=== PATIENT | male | born 1970 | race Two or more races ===

== ENCOUNTER 2017-09-01 05:52 | Emergency (ER) | payer SELFPAY ==
[2017-09-01 06:06] VITALS: TEMP 98.4; O2SAT 96
--- NOTE | 2017-09-01 06:31 | ED PDOC ---
HPI: Psych/Substance Abuse Time Seen by Provider: 09/01/17 06:05 Chief Complaint (Nursing): Psychiatric Evaluation Chief Complaint (Provider): Psychiatric Evaluation History Per: Patient, EMS History/Exam Limitations: no limitations Onset/Duration Of Symptoms: Days Current Symptoms Are (Timing): Still Present Additional Complaint(s): Brice Frazier is a 46 year old male, with a past medical history of schizophrenia, who was brought to the ED by EMS for psychiatric evaluation. As per EMS, patient was found ambulating around the streets hallucinating and acting bizarre. Patient denies suicidal ideations. Patient has no medical complaints at this time. PMD: SOHAN Past Medical History Reviewed: Historical Data, Nursing Documentation, Vital Signs Vital Signs: Last Vital Signs Temp 98.4 F 09/01/17 06:03 Pulse 74 09/01/17 06:03 Resp 16 09/01/17 06:03 BP 191/115 H 09/01/17 06:03 Pulse Ox 96 09/01/17 06:03 - Medical History PMH: Schizophrenia - Family History Family History: States: Unknown Family Hx - Home Medications Home Medications: Ambulatory Orders Medication Instructions Recorded Quetiapine Fumarate [Seroquel] 200 mg PO QID 09/01/17 - Allergies Allergies/Adverse Reactions: Allergies Allergy/AdvReac Type Severity Reaction Status Date / Time No Known Allergies Allergy Verified 09/01/17 06:03 Review of Systems ROS Statement: Except As Marked, All Systems Reviewed And Found Negative Psych: Negative for: Suicidal ideation Physical Exam - Reviewed Nursing Documentation Reviewed: Yes Vital Signs Reviewed: Yes - Physical Exam Appears: Positive for: Non-toxic, No Acute Distress Head Exam: Positive for: ATRAUMATIC Skin: Positive for: Normal Color, Warm. Negative for: Rash Eye Exam: Positive for: Normal appearance Cardiovascular/Chest: Positive for: Regular Rate, Rhythm. Negative for: Murmur Respiratory: Positive for: Normal Breath Sounds. Negative for: Respiratory Distress Gastrointestinal/Abdominal: Positive for: Normal Exam, Bowel Sounds, Soft. Negative for: Tenderness Neurologic/Psych: Positive for: Alert, Oriented - Laboratory Results Result Diagrams: 09/01/17 06:39 09/01/17 06:39 - ECG O2 Sat by Pulse Oximetry: 96 (RA) Pulse Ox Interpretation: Normal Medical Decision Making Medical Decision Making: Time: 06:16 Plan: --Acetaminophen --Alcohol serum --BMP --Urine drug screen --Salicylate --CBC w/ differential --1:1 Observation --Urinalysis --Reevaluation --Crisis is aware of patient. Awaiting medical clearance for evaluation. Time: 07:00 --Patient is signed out to Dr. Hernandez pending psychiatric evaluation. Scribe Attestation: Documented by Chano Albarado acting as a scribe for Ortiz Cohn MD. Scribe Attestation: All medical record entries made by the Scribe were at my direction and personally dictated by me. I have reviewed the chart and agree that the record accurately reflects my personal performance of the history, physical exam, medical decision making, and the department course for this patient. I have also personally directed, reviewed, and agree with the discharge instructions and disposition. Disposition - Clinical Impression Clinical Impression: Schizophrenia - Patient ED Disposition Is Patient to be Admitted: Transfer of Care - Disposition Referrals: [facility] [Outside] Disposition: Transfer of Care Disposition Time: 07:00 Condition: FAIR Instructions: Schizophrenia (ED) Forms: [employer] ([place]) Patient Signed Over To: Daniel Hernandez Handoff Comments: pending psych
[2017-09-01 06:50] LABS: EOS # 0.3 K/uL (0.0-0.7)
[2017-09-01 06:54] LABS: BASO % 0.2 % (0.0-2.0); EOS % 2.2 % (0.0-4.0); HEMOGLOBIN 12.1 g/dL (12.0-18.0); LYMPH % 26.2 % (20.0-40.0); MEAN CELL VOLUME 82.2 fl (80.0-94.0); MEAN CORPUSCULAR HEMOGLOBIN 27.6 pg (27.0-31.0); MEAN CORPUSCULAR HGB CONC 33.6 g/dL (33.0-37.0); MEAN PLATELET VOLUME 7.7 fl (7.2-11.7); MONO # 0.6 K/uL (0.0-0.8); MONO % 5.1 % (0.0-10.0); NEUT # 7.6 K/uL (1.8-7.0); NEUT % 66.3 % (50.0-75.0); NRBC % 0.1 % (0.0-0.0); RBC 4.36 Mil/uL (4.40-5.90); RED CELL DISTRIBUTION WIDTH 14.2 % (11.5-14.5); WHITE BLOOD COUNT 11.5 K/uL (4.8-10.8)
[2017-09-01 06:58] LABS: BLOOD UREA NITROGEN 15 mg/dl (9-20); CALCIUM 9.3 mg/dL (8.4-10.2); GFR AFRICAN-AMERICAN > 60; GFR NON-AFRICAN AMERICAN > 60
[2017-09-01 07:04] LABS: ACETAMINOPHEN < 10.0 ug/ml (10.0-30.0); SALICYLATE < 1.0 mg/dl
--- NOTE | 2017-09-01 07:12 | ED PDOC ---
- Laboratory Results Result Diagrams: 09/01/17 06:39 09/01/17 06:39 - ECG O2 Sat by Pulse Oximetry: 96 (RA) Disposition - Clinical Impression Clinical Impression: Schizophrenia - POA Present On Arrival: None - Disposition Referrals: [facility] [Outside] Disposition: Routine/Home Disposition Time: 07:11 Condition: FAIR Instructions: Schizophrenia (ED) Forms: [facility] ([place]ic)
[2017-09-01 07:25] VITALS: BP 155/83; PULSE 75; RESP 18
--- NOTE | 2017-09-02 10:58 | CARD ---
APPROVED REPORT EKG Measurement Heart [id number] <Conclusion> Normal sinus rhythm Minimal voltage criteria for LVH, may be normal variant T wave abnormality, consider lateral ischemia Abnormal ECG
== END 2017-09-01 07:35 | disposition home or self-care (01) ==
LOC: H.ER 05:52
DX: F20.9 Schizophrenia, unspecified (principal); Z86.59 Personal history of other mental and behavioral disorders; Z00.8 Encounter for other general examination
CPT/HCPCS: 80048; 85025; 93005; 99283; G0480